=== PATIENT | female | born 1935 | race Caucasian/White ===

== ENCOUNTER 2016-11-29 11:56 | Emergency (ER) | payer MEDICARE ==
[2016-11-29 13:05] VITALS: BP 112/50
--- NOTE | 2016-11-29 13:57 | UC ---
Throat Pain/Nasal Gonzalo HPI - HPI Summary HPI Summary: complaint of nasal congestion and sinus pressure post nasal drip down the back of her throat mild throat pain frequent headaches denies fever and chills and cough tried OTC medication without releif recent URI3 weeks ago that resolved for a week and now returned - History of Current Complaint Chief Complaint: UCRespiratory Stated Complaint: SINUS/CONGESTION Time Seen by Provider: 11/29/16 13:50 Hx Obtained From: Patient - Allergies/Home Medications Allergies/Adverse Reactions: Allergies Allergy/AdvReac Type Severity Reaction Status Date / Time Codeine Allergy Severe hallucinati Verified 11/29/16 13:05 on Penicillins Allergy Severe Itching Verified 11/29/16 13:05 Sulfa Drugs Allergy Severe Anaphylatic Verified 11/29/16 13:05 Shock Home Medications: Home Medications Levothyroxine TAB* [Synthroid TAB*] 88 mcg PO 0800 11/29/16 [History Confirmed 11/29/16] Methylcellulose (Laxative) [Citrucel Fiber Laxative] 1 dose PO DAILY 11/29/16 [ History Confirmed 11/29/16] PMH/Surg Hx/FS Hx/Imm Hx Previously Healthy: Yes Endocrine History Of: Reports: Thyroid Disease Cardiovascular History Of: Reports: Cardiac Disorders - CAD, irreg hrt beat - Surgical History Surgical History: Yes Surgery Procedure, Year, and Place: 2010- cardiac stent. 2011- tongue clipped. 1971- hernia. 1979/1998- ruptured disc. 1981- oviarian cyst, appy - Family History Known Family History: Positive: Cardiac Disease - parents, Hypertension - parents Negative: Diabetes - Social History Occupation: Retired Alcohol Use: None Substance Use Type: None Smoking Status (MU): Never Smoked Tobacco Review of Systems Skin: Negative, Rash ENT: Sore Throat, Nasal Discharge Respiratory: Negative Cardiovascular: Negative Gastrointestinal: Negative Genitourinary: Negative Motor: Negative Neurovascular: Negative Musculoskeletal: Negative Neurological: Negative Psychological: Negative All Other Systems Reviewed And Are Negative: Yes Physical Exam Triage Information Reviewed: Yes Appearance: Well-Appearing, No Pain Distress, Thin Vital Signs: Initial Vital Signs Temp 98.3 F 11/29/16 13:00 Pulse 63 11/29/16 13:00 Resp 14 11/29/16 13:00 BP 112/50 11/29/16 13:00 Pulse Ox 98 11/29/16 13:00 Vital Signs Reviewed: Yes Eyes: Positive: Conjunctiva Clear ENT: Positive: Pharyngeal erythema, Nasal congestion, Nasal drainage, TM bulging , Other: - maxillary sinus tenderness. Negative: TM red Neck: Positive: No Lymphadenopathy Respiratory: Positive: Lungs clear, Normal breath sounds, No respiratory distress Cardiovascular: Positive: RRR, No Murmur, Pulses Normal Abdomen Description: Positive: Nontender, Soft Bowel Sounds: Positive: Present Musculoskeletal: Positive: No Edema Neurological: Positive: Alert Psychological Exam: Normal Skin: Positive: Other - dry, poor turgor Throat Pain/Nasal Course/Dx - Differential Dx/Diagnosis Differential Diagnosis/HQI/PQRI: Pharyngitis, Sinusitis, URI Provider Diagnoses: sinsuisitis Discharge - Discharge Plan Condition: Stable Disposition: HOME Prescriptions: DOXYcycline CAP(*) [DOXYcycline 100MG CAP(*)] 100 mg PO BID #20 cap Patient Education Materials: Sinusitis (ED) Referrals: [facility] [Outside] Additional Instructions: SINUSITIS What is Sinusitis? Sinusitis is inflammation or infection of the lining of the sinuses behind the bones in your cheeks or forehead. Sinusitis may occur following a common cold, flu, or other infection; allergies; a tooth infection that spreads to the sinuses; swimming in contaminated water; pressure changes in airplanes at high altitudes; violent sneezing or nose blowing or smoking or breathing other peoples smoke. Symptoms Might Include: Nasal Congestion Sneezing Watery eyes, eye irritation, or eye itching Headaches Pressure in the cheeks Wheezing Trouble smelling Sore throat and coughing may occur Treatment Recommendations: Take medicines as prescribed until completely gone. Drink plenty of fluids. Use saline nose spray to thin the mucous and help the sinuses drain. Use a vaporizer or humidifier. Apply warm compresses to the face or forehead several times a day for 10 to 20 minutes. Call Your Doctor or Return Here IF: Your pain increases during treatment. You develop a high temperature. You develop unusual swelling around the eyes. You have difficulty with your vision. You develop a severe headache, earache, or toothache. You develop increased fever or fever that does not respond to medication such as Tylenol?. You have difficulty breathing or catching your breath. You begin to have any other new symptoms that worry you.
== END 2016-11-29 14:14 | disposition home or self-care (01) ==
LOC: UCCORT 11:56
DX: J32.9 Chronic sinusitis, unspecified (principal); E07.9 Disorder of thyroid, unspecified; Z98.61 Coronary angioplasty status; Z88.0 Allergy status to penicillin; Z88.2 Allergy status to sulfonamides; Z88.5 Allergy status to narcotic agent
CPT/HCPCS: 99212; G0463